=== PATIENT | male | born 1980 | race Caucasian/White ===

== ENCOUNTER 2017-05-14 09:15 | Emergency (ER) | payer OTHER ==
[2017-05-14 09:31] VITALS: RESP 18; O2SAT 99
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
[2017-05-14 11:36] VITALS: BP 112/65; PULSE 58; TEMP 98.7
== END 2017-05-14 11:54 | disposition home or self-care (01) ==
LOC: C.ER 09:15
DX: J11.1 Influenza due to unidentified influenza virus with other respiratory manifestations (principal); I10 Essential (primary) hypertension; E78.5 Hyperlipidemia, unspecified